=== PATIENT | female | born 1950 | race Caucasian/White ===

== ENCOUNTER → 2019-12-04 | Outpatient (CLI) | payer MEDICARE, MEDICAID ==
--- NOTE | 2019-12-05 12:14 | MAM ---
EXAM DESCRIPTION: 3D Screening BILATERAL : Digital Mammography. CLINICAL HISTORY: 68 years Female ANNUAL SCREENING . No complaints. No personal history of breast cancer. Menarche age 15. Childbirth age 26. Menopause age 55.. No HRT. Lifetime risk of developing breast cancer (Tyrer-Cuzick model)(%): 5.4. COMPARISON: Baseline study at this facility.. No prior reports available. TECHNIQUE: Bilateral CC and MLO projection full-field images, digital tomosynthesis mammographic technique. Bilateral digital 2-D full-field MLO images. CAD available for 2-D images. FINDINGS: The breast parenchymal density pattern is: Scattered areas of fibroglandular density. No skin thickening or nipple retraction. Bilateral skin mole markers. Solitary microcalcifications. Left axillary lymph node.. No focal, stellate mass or density, focal asymmetry , and no suspicious microcalcifications bilaterally. IMPRESSION: Benign exam. BIRAD CATEGORY: 2 BENIGN FINDINGS. RECOMMENDATIONS: FOLLOW UP: Routine digital bilateral mammographic screening, one year interval from November 2019. Written communication explaining the IMPRESSION and follow-up, will be mailed to the patient and referring health care provider. According to the [employer], yearly mammograms are recommended starting at age 40 and continuing as long as a woman is in good health. Any breast change noted on a breast self-exam should be reported promptly to the patient's healthcare provider. Breast MRI is recommended for women with an approximately 20-25% or greater lifetime risk of breast cancer, including women with a strong family history of breast or ovarian cancer and women who have been treated for Hodgkin's disease. A negative mammographic report should not delay tissue diagnosis in patients with significant clinical history or physical findings. Extremely dense breast tissue limits the sensitivity of digital mammography. Electronically signed by: Vimal Gonzales MD 12/05/2019 12:12 PM CDT
--- NOTE | 2019-12-05 13:08 | CT ---
Procedure: CT LUNG SCREENING Exam Date: December 04, 2019. Ordering Provider: Charlie Perez Clinical Indication: PULMONARY LUNG NODULE . Smoking cessation x9 years. 40 pack years. This patient meets eligibility criteria for low-dose CT lung cancer screening. Comparison: Low-dose CT lung cancer screening examination July 2018. Lung RADS category 3s. Patient did not return for six-month follow-up in January 2019. Technique: Using a multislice scanner, sequential helical axial imaging was obtained in the thorax, 2.5 mm thickness, 2.5 mm separation, from the level of the thoracic inlet through the lung bases without IV contrast. A low dose protocol was utilized for BMI less than 30: BMI: 25.8. CTDI: 1.76 mGy. 120. kVp. 45 mA. DLP 67 mGy-cm. 2D sagittal and coronal reconstructed images, 6.0 mm thickness, were obtained. This exam was performed according to our departmental dose optimization program which includes use of automated exposure control, adjustment of the mA and/or kV according to patient size and/or use of iterative reconstruction technique. Nodule measurements under 10 mm are given as mean value of 3 axes diameters. FINDINGS: Lungs and large airways: Dilated airways in multiple small blebs predominantly upper lung brown. Multiple nodules less than 3 mm diameter right upper lobe subpleural. Also subpleural right middle lobe and superior segment left right lower lobe. Large calcified subpleural nodule superior segment left lower lobe and smaller calcified nodules bilaterally.. Pleura and space: Minimal thickening with no acute process. Mediastinum and anna: evaluation limited by low dose technique and lack of IV contrast. Small lymph nodes with no dominant soft tissue mass. Heart and great vessels: Left main coronary artery calcification. Calcification aortic arch and descending thoracic aorta and right innominate artery. Chest wall, lower neck, axillae: Evaluation also limited by same factors as described above. Normal size axillary nodes. Upper abdomen: Evaluation limited by low-dose technique. No free air or free fluid in the anterior peritoneal space. Normal density and size of the adrenal glands and spleen. Surgical clips gallbladder fossa. Osseous structures: Evaluation limited by low dose MIP technique. Minimal thoracic spondylosis mid and lower segments. Arthrosis in the ogfjrvdy-ykjnsbub-yodboda joints. IMPRESSION: Multiple nodules less than 3 mm in diameter. Findings on the prior study are stable and most likely related to focal pleural scarring. No new abnormal nodules and no mass. Emphysematous changes mostly in the upper lung brown bilaterally.. [facility] Best Practice Recommendations: please see below for Lung RADS category and FOLLOW-UP.* *Lung RADS category CATEGORY 2- Nodules with a very low likelihood (less than 1%) of becoming a clinically active cancer due to size or lack of growth. Nodules: Perifissural nodule(s) < 10 mm. (526mm3). Solid or part solid nodule(s) less than 6mm (113.1 mm3), new solid nodule less than 4mm (33.5 mm3). Ground glass nodule(s) less than 30mm (12259.2 mm3) or unchanged or slow growing ground glass nodule 30mm or greater. Cat 3 or 4 nodule unchanged for 3 or more months. FOLLOW-UP: Continue annual screening with a Low Dose Chest CT in 12 months for re-evaluation. Electronically signed by: Vimal Gonzales MD 12/05/2019 1:05 PM CDT
== END ==
LOC: CT 09:00
PROVIDERS: ATTEND Family Medicine
DX: Z12.31 Encounter for screening mammogram for malignant neoplasm of breast (principal); R91.8 Other nonspecific abnormal finding of lung field; Z87.891 Personal history of nicotine dependence; J43.9 Emphysema, unspecified